=== PATIENT | male | born 1960 | race Caucasian/White ===

== ENCOUNTER → 2019-06-21 08:23 | Outpatient (BNVA) | payer MEDICARE, SELFPAY | PROVIDERS: Family Provider Nurse Practitioner; PCP Nurse Practitioner; Visit Provider Nurse Practitioner Psychiatric/Mental Health | DX: F43.12 Post-traumatic stress disorder, chronic (principal); F41.9 Anxiety disorder, unspecified; G89.29 Other chronic pain | CPT/HCPCS: 99214 ==

== ENCOUNTER → 2019-09-15 07:33 | Outpatient (BNVA) | payer MEDICARE, SELFPAY | PROVIDERS: Family Provider Nurse Practitioner; PCP Nurse Practitioner; Visit Provider Nurse Practitioner Psychiatric/Mental Health | DX: F43.12 Post-traumatic stress disorder, chronic (principal); F41.9 Anxiety disorder, unspecified; G89.29 Other chronic pain | CPT/HCPCS: 99212 ==

== ENCOUNTER 2019-12-08 14:49 | Outpatient (CLI) | payer OTHER, SELFPAY ==
--- NOTE | 2019-12-08 15:11 | MR_ITS ---
WS: [id number] MRI RIGHT SHOULDER AND PROXIMAL HUMERUS NONCONTRAST TECHNIQUE: Sagittal T2, coronal T1, T2 and proton density imaging. Axial gradient PDE imaging. CLINICAL INFORMATION: RIGHT ARM HEMATOMA/PAIN COMPARISON: 2016 FINDINGS: Postoperative changes rotator cuff repair is new from previous. Moderate degenerative arthritis at the AC joint with mild downsloping acromion. T2 signal abnormality involving the distal supraspinatus consistent with tendinopathy. Small recurrent intrasubstance and undersurface tear involving the distal supraspinatus. No tendon retraction. Chronic thinning of the s upraspinatus distally. Infraspinatus is intact with a tiny amount of tendinopathy distally. Normal teres minor. Tendinopathy in the subscapularis tendon distally. Mild chronic thinning of the subscapularis tendon. Fluid in th e subcoracoid bursa. Tiny atrophic biceps tendon only visualized distally within the bicipital groove. Proximal biceps ten don is not visualized. Intra-articular biceps tendon is not visualized and likely chronically torn. D egenerative fraying of the glenoid labrum. MR/MR humerus RT wo con* [id number] IMPRESSION: 1. Interval postoperative changes rotator cuff repair. 2. Small undersurface and intrasubstance tear involving the supraspinatus dist ally with tendinopathy. No recurrent full-thickness tear. Mild tendinopathy inv olving the infraspinatus. 3. Normal teres minor and subscapularis. Mild tendinopathy and atrophy involvi ng the subscapularis tendon progressed from previous. 4. Intra-articular biceps tendon is not visualized. Empty bicipital groove pro ximally consistent with chronic tear. Tiny atrophic biceps tendon distally. Thi s appears new from previous. 5. Mild degenerative fraying of the glenoid labrum.
== END 2019-12-08 14:50 | disposition home or self-care (01) ==
LOC: RADSHAW 14:56
PROVIDERS: PCP Nurse Practitioner; Visit Provider Nurse Practitioner
DX: M19.011 Primary osteoarthritis, right shoulder (principal); S40.021A Contusion of right upper arm, initial encounter; M75.101 Unspecified rotator cuff tear or rupture of right shoulder, not specified as traumatic; X58.XXXA Exposure to other specified factors, initial encounter
CPT/HCPCS: 73218

== ENCOUNTER → 2019-12-13 07:58 | Outpatient (BNVA) | payer OTHER, SELFPAY | PROVIDERS: PCP Nurse Practitioner; Visit Provider Nurse Practitioner Psychiatric/Mental Health | DX: F43.12 Post-traumatic stress disorder, chronic (principal); F41.9 Anxiety disorder, unspecified; G89.29 Other chronic pain | CPT/HCPCS: 99213 ==

== ENCOUNTER → 2020-01-05 15:21 | Outpatient (BNVA) | payer OTHER, SELFPAY | PROVIDERS: PCP Nurse Practitioner; Referring Provider Nurse Practitioner; Visit Provider Specialist | DX: M25.511 Pain in right shoulder (principal) | CPT/HCPCS: 73030 ==

== ENCOUNTER → 2020-03-06 07:53 | Outpatient (BNVA) | payer MEDICARE, SELFPAY | PROVIDERS: PCP Nurse Practitioner; Visit Provider Nurse Practitioner Psychiatric/Mental Health | DX: F43.12 Post-traumatic stress disorder, chronic (principal); F41.9 Anxiety disorder, unspecified; G89.29 Other chronic pain; F32.0 Major depressive disorder, single episode, mild | CPT/HCPCS: 99212 ==

== ENCOUNTER → 2020-04-30 08:36 | Outpatient (BNVA) | payer OTHER, SELFPAY | PROVIDERS: PCP Nurse Practitioner; Referring Provider Nurse Practitioner; Visit Provider Specialist | DX: G89.29 Other chronic pain (principal); M54.32 Sciatica, left side; M53.3 Sacrococcygeal disorders, not elsewhere classified | CPT/HCPCS: 73502 ==

== ENCOUNTER → 2020-05-29 07:38 | Outpatient (BNVA) | payer OTHER, SELFPAY | PROVIDERS: PCP Nurse Practitioner; Visit Provider Nurse Practitioner Psychiatric/Mental Health | DX: F43.12 Post-traumatic stress disorder, chronic (principal); F41.9 Anxiety disorder, unspecified; G89.29 Other chronic pain; F32.0 Major depressive disorder, single episode, mild | CPT/HCPCS: 99212 ==

== ENCOUNTER → 2020-08-21 07:39 | Outpatient (BNVA) | payer MEDICARE, SELFPAY | PROVIDERS: PCP Nurse Practitioner; Visit Provider Nurse Practitioner Psychiatric/Mental Health | DX: F43.12 Post-traumatic stress disorder, chronic (principal); F41.9 Anxiety disorder, unspecified; G89.29 Other chronic pain; F32.0 Major depressive disorder, single episode, mild | CPT/HCPCS: 99213 ==

== ENCOUNTER 2020-08-31 13:22 | Emergency (ER) | payer MEDICARE, SELFPAY ==
[2020-08-31] VITALS (7 sets, daily range): BP systolic 122–151; BP diastolic 71–98; PULSE 59–73; RESP 14–20; TEMP 36.8; O2SAT 94–99; BMI 40.7
--- NOTE | 2020-08-31 16:48 | XRR_ITS ---
PROCEDURE INFORMATION: Exam: XR Chest Exam date and time: 08/31/2020 4:58 PM Age: 60 years old Clinical indication: Type not specified; Prior surgery; Surgery date: 6+ months; Surgery type: Stents x 3; Patient HX: C/O chest pain starting 08/31. HX of [place]; Additional info: Cp TECHNIQUE: Imaging protocol: XR of the chest Views: 1 view. COMPARISON: CR Chest 1 [place] [id number] 01/17/2019 9:30 PM FINDINGS: Lungs: Interstitial prominence and chronic granulomatous disease. No acute airspace disease. Pleural spaces: No pleural effusion. Heart/Mediastinum: Epicardial fat, without cardiomegaly. Bones/joints: Degenerative change. XR/XR chest 1V portable [id number] IMPRESSION: No acute airspace or pleural disease.
--- NOTE | 2020-08-31 16:48 | ECG_ITS ---
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 Measurements Intervals [place] Rate: 55 P: 44 [place]: 151 QRS: 27 QRSD: 109 T: 22 QT: 407 QTc: 390 Interpretive Statements SINUS BRADYCARDIA WITH OCCASIONAL VENTRICULAR PREMATURE COMPLEXES PROBABLE LATERAL MYOCARDIAL INFARCTION , PROBABLY OLD [35 ms Q WAVE IN I/aVL/V5/V6] INFERIOR MYOCARDIAL INFARCTION , PROBABLY OLD [40+ ms Q WAVE AND/OR ST/T ABNORMALITY IN II/aVF] Compared to ECG 01/18/2019 01:21:26 Ventricular premature complex(es) now present Myocardial infarct finding now present Sinus rhythm no longer present Electronically Signed On 08-31-2020 23:16:50 CDT by Cosmo Billy M.D. [id number]
[2020-08-31 17:43] LABS: Basophils # 0.1 10^3/uL (0.0-0.1); Basophils % 0.6 %; Eosinophils # 0.3 10^3/uL (0.0-0.8); Eosinophils % 3.7 %; Hematocrit 42.7 % (42.0-52.0); Hemoglobin 13.7 g/dL (11.7-16.6); Lymphocytes # 2.2 10^3/uL (0.8-4.8); Lymphocytes % 26.4 %; Mean Corpuscular HGB Conc 32.1 g/dL (30.0-36.0); Mean Corpuscular Hemoglobin 29.3 pg (28.0-34.0); Mean Corpuscular Volume 91.2 fL (80-94); Mean Platelet Volume 10.5 fL (7.4-10.4); Monocytes # 0.7 10^3/uL (0.2-0.9); Monocytes % 7.9 %; Neutrophils # 5.06 10^3/uL (1.8-7.7); Neutrophils % 61.2 %; Nucleated Red Blood Cells % 0 %; Platelet Count 231 10^3/cmm (130-400); Red Blood Count 4.68 10^6/uL (4.1-5.3); Red Cell Distribution Width 13.1 % (12.1-15.1); White Blood Count 8.3 10^3/uL (4.0-10.0)
[2020-08-31] MEDS: nitroglycerin 1 gm/inch oint Pkt 1 INCH TOPICAL (18:04)
[2020-08-31] MEDS: aspirin 81 mg Chew Tablet 324 MG PO (18:04)
[2020-08-31 18:17] LABS: Troponin(5th) Baseline 8 ng/L (0-15)
[2020-08-31 18:26] LABS: Alanine Aminotransferase 16 U/L (0-41); Albumin Level 4.4 g/dL (3.5-5.2); Alkaline Phosphatase 91 IU/L (40-130); Anion Gap 15.1 (5-19); Aspartate Amino Transferase 16 U/L (0-40); Blood Urea Nitrogen 12 mg/dL (6-20); Carbon Dioxide 27 mmol/L (22-29); Chloride 101 mmol/L (98-107); Globulin 3.3 g/dL (1.3-4.6); Glomerular Filtration Rate 115.4 mL/min (90-130); Glucose 88 mg/dL (65-115); NT Pro B Type Natriuretic Pept 147 pg/mL (0-125); Osmolality Calculated 287 mOsm/kg (285-295); Potassium 4.1 mmol/L (3.5-5.1); Sodium 139 mmol/L (136-145); Total Bilirubin 0.3 mg/dL (0.15-1.2); Total Protein 7.7 g/dL (6.6-8.7)
--- NOTE | 2020-08-31 19:05 | PC.NURSE ---
REPORT RECEIVED FROM SAMANTA BHAKTA AND CARE TRANSFERRED TO SAMANTA RESTREPO
--- NOTE | 2020-08-31 21:21 | ED_ITS ---
HPI - Chest Pain General: Chief Complaint: Chest Pain Stated Complaint: CHEST PAINS Time Seen by Provider: 08/31/20 16:42 Source: patient Mode of arrival: ambulatory Limitations: no limitations History of Present Illness: HPI narrative: This pleasant 60-year-old male with a prior history of coronary artery disease, prior WI, with stents presents to the emergency department with chest pain that started about an hour prior to arrival. He had gone out and he did not have his nitro tablets with him so he was not able to take him. He has been having intermittent pain for about 3 days but today when the pain did not resolve he decided to come to the emergency department to be evaluated. MD complaint: chest pain Pertinent past history: coronary artery disease and prior WI Onset (ago): hour(s) (1) Timing of current episode: episodic Prior episodes: Yes Onset: during rest Pain location: left chest Pain radiation: left shoulder Severity: moderate Relieving factors: nothing Exacerbating factors: nothing Associated symptoms: Deny abdominal pain, diaphoresis, dyspnea, fever(s), leg edema, nausea, palpitations, sense of impending doom, syncope or vomiting Treatment prior to arrival: none Review of Systems General: Reports: 10 or more systems reviewed and unremarkable except in HPI and below Const: Denies: fever(s) or diaphoresis Eyes: Denies: change in vision or blurry vision ENMT: Denies: throat pain, enlarged tonsils, odynophagia, hoarseness, mouth pain or swelling of lips/tongue Card: Denies: palpitations or syncope Resp: Denies: dyspnea GI: Denies: abdominal pain, nausea or vomiting : Denies: flank pain, dysuria, urinary frequency, urinary urgency or urinary hesitancy Musc: Denies: neck pain, back pain or extremity swelling Skin/Breast: Denies: rash, pruritus or erythema Neuro: Denies: headache(s), numbness in extremities or weakness in extremities Endo: Denies: polyuria, polydipsia or tired all the time [facility] PFSH: Medical History (Reviewed 08/31/20 @ 22:21 by Virginie Cao [place] [facility] [place] Depressive disorder Essential (primary) hypertension Hyperlipemia Mild depression PTSD (post-traumatic stress disorder) Surgical History (Reviewed 08/31/20 @ 22:21 by Virginie Cao MD, [facility] [place] History of back surgery History of carpal tunnel release of both wrists Hx of rotator cuff surgery Family History (Reviewed 08/31/20 @ 22:21 by Virginie Cao MD, [facility] [place] Other CAD (coronary artery disease) Social History (Reviewed 08/31/20 @ 22:21 by Virginie Cao MD, [facility] [place] Smoking and tobacco status: never smoked Alcohol intake: never Physical Exam Const: COMMON NORMALS: no acute distress, average body habitus, patient oriented x3, no limitations, healthy appearing, alert and well nourished HENMT: COMMON NORMALS: normocephalic, atraumatic and moist oral mucous membranes HEAD & SCALP: normocephalic and atraumatic Neck/C-Spine: COMMON NORMALS: no meningeal signs and no JVD Chest: COMMONS NORMALS: normal inspection of the chest and normal palpation of entire chest wall Resp: COMMON NORMALS: normal respiratory effort, No retractions, No use of accessory muscles, clear to auscultation bilaterally and percussion normal AUSCULTATION: clear to auscultation bilaterally PERCUSSION: percussion normal Cardio: COMMON NORMALS: no JVD, regular rate, regular rhythm, S1 normal heart sound present, S2 normal heart sound present, No gallops present (Cardio), No clicks present (Cardio), No murmurs present (Cardio), No rub (Cardio) and Peripheral pulses 2+ throughout RATE: regular rate RHYTHM: regular rhythm HEART SOUNDS: S1 normal heart sound present and S2 normal heart sound present PERIPHERAL PULSES: Peripheral pulses 2+ throughout GI: COMMON NORMALS: Normal to inspection, nondistended, normoactive bowel sounds present, Soft to palpation, non-tender, No hepatosplenomegaly present, no masses and no bruits PALPATION: Yes Soft to palpation and Yes No hepatosplenomegaly present Extremity: COMMON NORMALS: normal to inspection, full ROM, capillary refill normal, no calf tenderness and no pedal edema Neuro: COMMON NORMALS: patient oriented x3 SENSORIUM/ORIENTATION: Yes alert MENINGEAL SIGNS: Yes no meningeal signs Skin: COMMON NORMALS: no rashes or lesions noted, no wounds, turgor normal, no jaundice, no petechiae and no mottling GENERAL SKIN EXAM: no rashes or lesions noted and turgor normal Course Reevaluation(s): Reevaluation #1: Discussed his lab and imaging findings with him. Negative high-sensitivity troponin x2. Other tests and imaging unremarkable. We will discharge him home with no new orders. He voiced understanding and is in agreement with the plan. Time: 21:21 Vital Signs: Vital signs: Vital Signs Temperature 98.2 F 08/31/20 14:15 Pulse Rate 68 08/31/20 21:31 Respiratory Rate 17 08/31/20 21:31 Blood Pressure 135/98 08/31/20 21:31 Pulse Oximetry 97 08/31/20 21:31 MDM - Chest Pain MDM Narrative: Medical decision making narrative: 60-year-old male with a prior cardiac history who presents to the emergency department with chest pain. Evaluation in the ED was unremarkable for acute findings or his cardiac cause for his pain. He is discharged home with no new orders. Medical Records: Attestation: I reviewed the patient's medical records. Lab Data: Attestation: I reviewed the patient's lab results. Labs: Lab Results 08/31/20 08/31/20 08/31/20 Range/Units 17:34 17:34 17:34 WBC 8.3 (4.0-10.0) 10^3/ uL RBC 4.68 (4.1-5.3) 10^6/u L Hgb 13.7 (11.7-16.6) g/dL Hct 42.7 (42.0-52.0) % MCV 91.2 (80-94) fL MCH 29.3 (28.0-34.0) pg MCHC 32.1 (30.0-36.0) g/dL RDW 13.1 (12.1-15.1) % Plt Count 231 (130-400) 10^3/c mm MPV 10.5 H (7.4-10.4) fL Neut % (Auto) 61.2 % Lymph % (Auto) 26.4 % [place] % (Auto) 7.9 % Eos % (Auto) 3.7 % Baso % (Auto) 0.6 % Neut # (Auto) 5.06 (1.8-7.7) 10^3/u L Lymph # (Auto) 2.2 (0.8-4.8) 10^3/u L [place] # (Auto) 0.7 (0.2-0.9) 10^3/u L Eos # (Auto) 0.3 (0.0-0.8) 10^3/u L Baso # (Auto) 0.1 (0.0-0.1) 10^3/u L Nucleated RBC % (a uto) 0 % Nucleated RBCs # 0.0 /100WBC Sodium 139 (136-145) mmol/L Potassium 4.1 (3.5-5.1) mmol/L Chloride 101 (98-107) mmol/L Carbon Dioxide 27 (22-29) mmol/L Anion Gap 15.1 (5-19) BUN 12 (6-20) mg/dL Creatinine 0.7 (0.7-1.2) mg/dL GFR Calculation 115.4 (90-130) mL/min Glucose 88 (65-115) mg/dL Calculated Osmolal ity 287 (285-295) mOsm/k g Calcium 9.0 (8.5-10.5) mg/dL Total Bilirubin 0.3 (0.15-1.2) mg/dL AST 16 (0-40) U/L ALT 16 (0-41) U/L Alkaline Phosphata se 91 (40-130) IU/L Troponin T Baselin e 8 (0-15) ng/L Troponin T 120 [address] [place] (0-15) ng/L Delta Troponin T (0-10) ABS# NT-Pro-B Natriuret Pep 147 H (0-125) pg/mL Total Protein 7.7 (6.6-8.7) g/dL Albumin 4.4 (3.5-5.2) g/dL Globulin 3.3 (1.3-4.6) g/dL 08/31/20 Range/Units 19:33 WBC (4.0-10.0) 10^3/ uL RBC (4.1-5.3) 10^6/u L Hgb (11.7-16.6) g/dL Hct (42.0-52.0) % MCV (80-94) fL MCH (28.0-34.0) pg MCHC (30.0-36.0) g/dL RDW (12.1-15.1) % Plt Count (130-400) 10^3/c mm MPV (7.4-10.4) fL Neut % (Auto) % Lymph % (Auto) % [place] % (Auto) % Eos % (Auto) % Baso % (Auto) % Neut # (Auto) (1.8-7.7) 10^3/u L Lymph # (Auto) (0.8-4.8) 10^3/u L [place] # (Auto) (0.2-0.9) 10^3/u L Eos # (Auto) (0.0-0.8) 10^3/u L Baso # (Auto) (0.0-0.1) 10^3/u L Nucleated RBC % (a uto) % Nucleated RBCs # /100WBC Sodium (136-145) mmol/L Potassium (3.5-5.1) mmol/L Chloride (98-107) mmol/L Carbon Dioxide (22-29) mmol/L Anion Gap (5-19) BUN (6-20) mg/dL Creatinine (0.7-1.2) mg/dL GFR Calculation (90-130) mL/min Glucose (65-115) mg/dL Calculated Osmolal ity (285-295) mOsm/k g Calcium (8.5-10.5) mg/dL Total Bilirubin (0.15-1.2) mg/dL AST (0-40) U/L ALT (0-41) U/L Alkaline Phosphata se (40-130) IU/L Troponin T Baselin e (0-15) ng/L Troponin T 120 [address] [place] 9.90 (0-15) ng/L Delta Troponin T 1.90 (0-10) ABS# NT-Pro-B Natriuret Pep (0-125) pg/mL Total Protein (6.6-8.7) g/dL Albumin (3.5-5.2) g/dL Globulin (1.3-4.6) g/dL Imaging Data^: CXR: Attestation: I personally reviewed and interpreted this imaging study as follows: My impression: no acute findings EKG Data^: EKG 1: Attestation: I personally reviewed and interpreted this EKG as follows: EKG interpretation date: 08/31/20 EKG interpretation time: 19:01 Prior EKG tracings: not available for review Ischemic changes: q waves (leads II, III, aVF) Interpretation: Sinus bradycardia with occasional PVCs. Heart rate 55 bpm. Q waves in leads II, III, aVF. No ST changes Discharge Plan Discharge Patient Disposition: Home Clinical Impression: Chest pain, non-cardiac Condition: Stable Prescriptions: Continued atorvastatin 20 mg tablet 20 mg PO DAILY@1900 RF: 0 clopidogrel 75 mg tablet 75 mg PO DAILY@0600 RF: 0 cyclobenzaprine 10 mg tablet 10 mg PO TID PRN (Reason: Muscle Pain) RF: 0 metoprolol tartrate 100 mg tablet 50 mg PO BID@ RF: 0 omeprazole magnesium 20 mg tablet,delayed release (DR/EC) 20 mg PO DAILY@06 RF: 0 diclofenac sodium 50 mg tablet,delayed release (DR/EC) 50 mg PO BID@ RF: 0 Nitrostat 0.4 mg Tablet, Sublingual 0.4 mg SUBLINGUAL Q5M PRN (Reason: Chest Pain) RF: 0 Lyrica 150 mg Capsule 150 mg PO BID@ RF: 0 Fish Oil 1,200 (144-216) mg Capsule 1 cap PO BID@ RF: 0 prazosin 1 mg capsule 1 mg PO BEDTIME@1900 RF: 0 hydroxyzine pamoate 50 mg capsule 50 mg PO BID PRN (Reason: anxiety) RF: 0 Lexapro 20 mg tablet 20 mg PO DAILY@06 RF: 0 Discharge Orders: Discharge ED (Routine); Ordered 08/31/20 Ordered By: Virginie Cao Referrals: Linda Nielson FNP [Primary Care Provider] - 1-3 days Discharge Diet: Usual diet Discharge Activity: Increase activity as tolerated Patient Instructions: Noncardiac Chest Pain (ED) Activity Restrictions/Additional Instructions: Return for any new or worsening symptoms. Follow-up with your primary care provider within 3 days. Continue home medications as prescribed. Coding Level of Care Code ED Business Operations Manager for Libia Saez
== END 2020-08-31 20:34 | disposition home or self-care (01) ==
PROVIDERS: Emergency Provider Family Medicine; PCP Nurse Practitioner
DX: R07.89 Other chest pain (principal); Z79.02 Long term (current) use of antithrombotics/antiplatelets; I10 Essential (primary) hypertension; E78.5 Hyperlipidemia, unspecified
CPT/HCPCS: 71045; 80053; 83880; 84484; 85025; 93005; 99284

== ENCOUNTER 2020-10-22 08:13 | Outpatient (CLI) | payer OTHER, SELFPAY ==
--- NOTE | 2020-10-22 08:16 | MR_ITS ---
WS: [id number] MRI LUMBAR SPINE NONCONTRAST HISTORY: LOW BACK PAIN W/SCIATICA COMPARISON: 11/15/2008 TECHNIQUE: Sagittal and axial multisequence imaging is submitted. Prior laminectomy defects at L3-4 and L4-5. Mild thoracolumbar scoliosis. Mild RIGHT curvature of the lumbar spine. Significant progression of de generative changes at the L3-4 disc level greatest towards the LEFT. There is very minimal increased signal on the T2 and FLAIR sequences in the far LEFT vertebral bodies. No fluid in the disc. The remaining disc spaces are minimally narrowed with desiccation. Conus terminates normally at L1-2 disc level. L1-L2: Normal. L2-L3: Minimal facet joint arthritis. No stenosis. L3-L4: Diffuse annular disc bulging with osteophytosis. Moderate bilateral facet joint arthritis. The re is increased soft tissue completely effacing fat in the LEFT foramen and slightly in the RIGHT for amen. There is a large posterior laminectomy defect. Mild central stenosis and RIGHT foraminal stenos is. L4-L5: Diffuse annular disc bulging and osteophytic ridging. Moderate ligamentum flavum hypertrophy a nd facet arthritis. Large posterior laminectomy defects. Moderate RIGHT and mild LEFT foraminal steno sis due to disc and osteophyte disease. L5-S1: Mild annular disc bulge. Disc abuts but does not displace the L5 nerve root on the RIGHT. Very mild foraminal narrowing. MR/MR lumbar spine wo con* [id number] IMPRESSION: 1. Status post prior large laminectomy defects at L3-4 and L4-5. 2. Significant change in the L3-4 due to disc and adjacent vertebral body endp lates since 2008. Mild increased T2 signal in the LEFT L3 and L4 endplates is p robably reactive. Less likely due to osteomyelitis as there is only very slight marrow edema. 3. Significant disc desiccation with osteophyte development and disc destructi ve changes of the LEFT L3 and L4 endplates. Severe LEFT foraminal stenosis due to combination of disc and osteophyte and facet disease. 4. Mild central and RIGHT foraminal stenosis at L3-4. 5. Moderate RIGHT and mild LEFT foraminal stenosis at L4-5 due to disc and ost eophyte disease.
== END 2020-10-22 08:14 | disposition home or self-care (01) ==
LOC: RADSHAW 08:14
PROVIDERS: PCP Nurse Practitioner; Visit Provider Nurse Practitioner
DX: M54.40 Lumbago with sciatica, unspecified side (principal); M96.1 Postlaminectomy syndrome, not elsewhere classified; M25.78 Osteophyte, vertebrae; M48.061 Spinal stenosis, lumbar region without neurogenic claudication
CPT/HCPCS: 72148

== ENCOUNTER → 2020-11-13 07:43 | Outpatient (BNVA) | payer MEDICARE, SELFPAY | PROVIDERS: PCP Nurse Practitioner; Visit Provider Nurse Practitioner Psychiatric/Mental Health | DX: F43.12 Post-traumatic stress disorder, chronic (principal); F41.9 Anxiety disorder, unspecified; G89.29 Other chronic pain; F32.0 Major depressive disorder, single episode, mild | CPT/HCPCS: 99213 ==

== ENCOUNTER → 2021-02-05 07:48 | Outpatient (BNVA) | payer MEDICARE, SELFPAY | PROVIDERS: PCP Nurse Practitioner; Visit Provider Nurse Practitioner Psychiatric/Mental Health | DX: F43.12 Post-traumatic stress disorder, chronic (principal); F41.9 Anxiety disorder, unspecified; G89.29 Other chronic pain; F32.0 Major depressive disorder, single episode, mild | CPT/HCPCS: 99213 ==

== ENCOUNTER 2021-03-22 08:44 | Outpatient (CLI) | payer OTHER, SELFPAY ==
--- NOTE | 2021-03-22 09:11 | ECG_ITS ---
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 Interpretive Statements NAME OF STUDY: LEXISCAN SESTAMIBI STRESS TEST INDICATION: Pre op Clearance, Coronary Artery Disease PROCEDURE: At the baseline, the blood pressure was 142/80 mmHg, oxygen saturation 97% with a heart rate of 57 bpm. The electrocardiogram showed sinus bradycardia with artifact. Normal axis. Nonspecific ST changes. Sinus rhythm with artifact.. The Lexiscan was infused over a period of 20 seconds. A total of 0.4 milligrams of Lexiscan was infused. The stress phase was continued for a total of 5 minutes. Heart rate at the end of the stress phase was 92 bpm, oxygen saturation 92% with a blood pressure of 153/87 mmHg. The EKG at the peak infusion revealed no significant ST-T wave changes. Significant artifact at peak exercise however early recovery with no significant ST-T wave changes. Sestamibi was injected 20 seconds after the Lexiscan infusion. Blood pressure at the end of the recovery phase was with a heart rate of per minute. CONCLUSION: 1. No significant EKG changes with the LexiScan infusion. 2. No LexiScan induced chest pain or cardiac arrhythmia. 3. Normal blood pressure and heart rate response. 4. Sestamibi/sestamibi perfusion scan pending; see separate report. Electronically Signed On 03-25-2021 11:58:35 CDT by Harriett Mata M.D. [id number]
--- NOTE | 2021-03-22 09:11 | NMCV_ITS ---
NM ary perf SPECT r/s* [id number] Myke Liu Age: 61 Gender: M : 1960 Exam Date: 03/22/2021 09:11 Ordering Phys: Harriett Mata MD ([email or web address]) Technologist: JANNET Brown Exam Location: [facility] Indications: HEART DISEASE STRESS TEST Please see separate stress test report in [facility] for full findings IMAGE PROTOCOL Rest/Stress 1 Lexiscan Day Radiopharmaceutical Dose (mCi) Administration Site Administered by Rest: Tc-99m 10.6 IV JANNET Brown Sestamibi Stress:Tc-99m 32.8 IV JANNET Cardenas Sestamibi Rest: 22-Mar-2021 60 Discovery 630 Stress: 22-Mar-2021 30 Discovery 630 0.4mg Lexiscan. Images obtained in supine and prone position. SPECT RESULTS Technical Quality: Excellent Raw Data Analysis: Normal Image Corrections: No attenuation or motion correction applied Summed Stress Score: 15 Summed Rest Score: 16 Summed Difference Score: 2 PERFUSION FINDINGS Large sized perfusion abnormality of moderate to severe severity in basal to apical inferior, basal to mid infero-lateral and mid to apical septal bazan with subtle reversibility in mid inferior and apical septal bazan on stress images. FUNCTIONAL RESULTS (calculated via Gated SPECT) Stress Image LV EF (%): 51 Stress EDV (mL):162 TID: 0.98 Stress ESV (mL):79 FUNCTIONAL FINDINGS: The left ventricle is normal in size. Transient Ischemia Dilatation of 0.98. The left ventricular ejection fraction is mildly reduced with a value of 51%. There is hypokinesis of inferior and infero-lateral bazan. Increased end diastolic and end systolic volumes. IMPRESSIONS 1. Large sized perfusion abnormality of moderate to severe severity in basal to apical inferior, basal to mid infero-lateral and mid to apical septal bazan with subtle reversibility in mid inferior and apical septal bazan on stress images. 2. This likely represents old myocardial infarction in RCA/LCx artery territory with mild manas-infarct ischemia. 3. The left ventricular ejection fraction is mildly reduced with a value of 51%. 4. There is hypokinesis of inferior and infero-lateral bazan. 5. No prior similar studies to compare. Harriett Mata MD (Electronically Signed) Final Date: 24 March 2021 21:12 S
[2021-03-22 09:12] VITALS: BMI 40.7
[2021-03-22] MEDS: regadenoson 0.4 Mg/5 ml Syringe IVP (10:50)
[2021-03-22] MEDS: ondansetron 2 mg/ML SDV 2 mL 4 MG IVP (11:00)
[2021-03-22 11:09] VITALS: BP 130/92; PULSE 66
== END 2021-03-22 08:45 | disposition home or self-care (01) ==
LOC: CDL 08:46
PROVIDERS: PCP Nurse Practitioner; Visit Provider Internal Medicine Cardiovascular Disease
DX: I25.10 Atherosclerotic heart disease of native coronary artery without angina pectoris (principal); I25.9 Chronic ischemic heart disease, unspecified
CPT/HCPCS: 78452; 93017; A9500; J2405; J2785

== ENCOUNTER 2021-05-27 15:09 | Outpatient (CLI) | payer MEDICARE, OTHER, SELFPAY ==
[2021-05-27 16:07] LABS: Hematocrit 36.2 % (42.0-52.0); Hemoglobin 11.2 g/dL (11.7-16.6); Mean Corpuscular HGB Conc 30.9 g/dL (30.0-36.0); Mean Corpuscular Hemoglobin 27.5 pg (28.0-34.0); Mean Corpuscular Volume 88.9 fl (80-94); Mean Platelet Volume 10.3 fL (7.4-10.4); Platelet Count 350 10^3/cmm (130-400); Red Blood Count 4.07 10^6/uL (4.1-5.3); Red Cell Distribution Width 14.1 % (12.1-15.1); White Blood Count 6.5 10^3/uL (4.0-10.0)
[2021-05-27 16:31] LABS: Alanine Aminotransferase < 5 U/L (0-41); Alkaline Phosphatase 70 IU/L (40-130); Aspartate Amino Transferase 13 U/L (0-40); Blood Urea Nitrogen 13 mg/dL (8-23); C Reactive Protein 4.3 mg/L (0.0-4.9); Calcium 8.9 mg/dL (8.5-10.5); Carbon Dioxide 22 mmol/L (22-29); Chloride 99 mmol/L (98-107); Globulin 3.1 g/dL (1.3-4.6); Glucose 138 mg/dL (65-115); Osmolality Calculated 286 mOsm/kg (285-295); Sodium 137 mmol/L (136-145); Total Bilirubin 0.2 mg/dL (0.15-1.2); Total Protein 7.1 g/dL (6.6-8.7)
[2021-05-27 16:37] LABS: Anion Gap 19.7 (5-19)
[2021-05-27 16:38] LABS: Potassium 3.7 mmol/L (3.5-5.1)
[2021-05-27 18:12] LABS: Absolute Eosinophils 0.7 10^3/cmm (0.0-0.7); Absolute Neutrophil 2.9 10^3/cmm (1.4-6.5); Absolute Segmented Neutrophil 2.9 10/cmm (1.6-7.1); Eosinophils 11 %; Giant Platelets Trace; Lymphocytes 37 %; Lymphocytes Absolute 2.4 10^3/cmm (1.2-3.4); Monocytes Absolute 0.5 10^3/cmm (0.1-0.6); Platelet Estimate Normal (Normal); Segmented Neutrophils 44 %; Smudge Cells Trace; Total Cells Counted 100 (0-100)
== END 2021-05-27 15:10 | disposition home or self-care (01) ==
PROVIDERS: PCP Nurse Practitioner; Visit Provider Internal Medicine Infectious Disease
DX: A49.02 Methicillin resistant Staphylococcus aureus infection, unspecified site (principal)
CPT/HCPCS: 80053; 85007; 85027; 86140

== ENCOUNTER 2021-06-11 14:52 | Outpatient (CLI) | payer OTHER, SELFPAY ==
[2021-06-11 15:25] LABS: Basophils % 0.5 %; Eosinophils # 0.3 10^3/uL (0.0-0.8); Eosinophils % 4.1 %; Hematocrit 39.4 % (42.0-52.0); Hemoglobin 12.3 g/dL (11.7-16.6); Lymphocytes # 2.2 10^3/uL (0.8-4.8); Mean Corpuscular HGB Conc 31.2 g/dL (30.0-36.0); Mean Corpuscular Volume 89.7 fl (80-94); Mean Platelet Volume 10.7 fL (7.4-10.4); Monocytes # 0.9 10^3/uL (0.2-0.9); Monocytes % 11.9 %; Neutrophils # 4.07 10^3/uL (1.8-7.7); Neutrophils % 54.4 %; Nucleated Red Blood Cells % 0 %; Platelet Count 284 10^3/cmm (130-400); Red Blood Count 4.39 10^6/uL (4.1-5.3); Red Cell Distribution Width 13.9 % (12.1-15.1); White Blood Count 7.5 10^3/uL (4.0-10.0)
[2021-06-11 16:03] LABS: Alanine Aminotransferase 10 U/L (0-41); Alkaline Phosphatase 86 IU/L (40-130); Aspartate Amino Transferase 12 U/L (0-40); Blood Urea Nitrogen 11 mg/dL (8-23); Calcium 8.4 mg/dL (8.5-10.5); Carbon Dioxide 26 mmol/L (22-29); Chloride 102 mmol/L (98-107); Globulin 3.1 g/dL (1.3-4.6); Glomerular Filtration Rate 137.4 mL/min (90-130); Glucose 91 mg/dL (65-115); Osmolality Calculated 291 mOsm/kg (285-295); Sodium 141 mmol/L (136-145); Total Bilirubin 0.2 mg/dL (0.15-1.2); Total Protein 7.1 g/dL (6.6-8.7)
[2021-06-11 16:05] LABS: Anion Gap 17.2 (5-19); Potassium 4.2 mmol/L (3.5-5.1)
== END 2021-06-11 14:53 | disposition home or self-care (01) ==
PROVIDERS: Visit Provider Internal Medicine Infectious Disease
DX: A49.02 Methicillin resistant Staphylococcus aureus infection, unspecified site (principal)
CPT/HCPCS: 80053; 85025

== ENCOUNTER → 2021-07-11 07:13 | Outpatient (BNVA) | payer OTHER, SELFPAY | PROVIDERS: Visit Provider Nurse Practitioner Psychiatric/Mental Health | DX: F41.9 Anxiety disorder, unspecified (principal); F43.12 Post-traumatic stress disorder, chronic; G89.29 Other chronic pain | CPT/HCPCS: 99213 ==

== ENCOUNTER → 2021-10-07 10:07 | Outpatient (BNVA) | payer OTHER, SELFPAY | PROVIDERS: Visit Provider Nurse Practitioner Psychiatric/Mental Health | DX: F41.9 Anxiety disorder, unspecified (principal); F43.12 Post-traumatic stress disorder, chronic; G89.29 Other chronic pain | CPT/HCPCS: 99214 ==

== ENCOUNTER → 2023-03-25 08:51 | Outpatient (BNVA) | payer OTHER, SELFPAY | PROVIDERS: Visit Provider Nurse Practitioner Family | DX: L57.0 Actinic keratosis (principal); Z80.8 Family history of malignant neoplasm of other organs or systems; L28.1 Prurigo nodularis; D22.5 Melanocytic nevi of trunk; L57.8 Other skin changes due to chronic exposure to nonionizing radiation; L81.4 Other melanin hyperpigmentation | CPT/HCPCS: 17000; 99213 ==

== ENCOUNTER 2023-06-23 09:34 | Emergency (ER) | payer OTHER, SELFPAY ==
--- NOTE | 2023-06-23 09:39 | XR_ITS ---
WS: [id number] PORTABLE CHEST HISTORY: cough, dyspnea COMPARISON: 08/31/2020 Lungs are clear and well expanded. No pleural effusion or pneumothorax. Cardiac size: Normal. Mediastinum/Aorta: Normal mediastinum. No osseous abnormality seen. IMPRESSION: Unremarkable portable chest.
[2023-06-23 09:40] VITALS: BP 168/84; PULSE 80; RESP 16; TEMP 37; O2SAT 96; BMI 36.0
--- NOTE | 2023-06-23 09:45 | ED_ITS ---
HPI - URI/Sore Throat General: Chief Complaint: COVID symptoms Stated Complaint: Cough, SOB Time Seen by Provider: 06/23/23 09:39 Source: patient Mode of arrival: ambulatory Limitations: no limitations History of Present Illness: Patient is a nice 63-year-old male who presents to ED today for evaluation of upper respiratory-like symptoms. Patient states last week he began having nasal congestion, runny nose, sore throat, cough, and bodyaches. He states the symptoms lasted for a few days but then he got better . He states over the past 2 to 3 days symptoms have now returned. He has not been running fevers. He denies chest pain or difficulty breathing. He does feel like it is hard to get a full deep breath. Denies sick contacts. MD elicited complaint: cough, sore throat, nasal congestion, sinus pain and other (sob) Onset (ago): day(s) Consistency: constant Severity: moderate Description of mucous: clear Able to tolerate fluids by mouth: Yes Exacerbating factors: nothing Relieving factors: nothing Associated symptoms: Reports congestion, cough, nasal congestion and sinus pain; Deny abdominal pain, chills, chest pain, diarrhea, ear or mastoid pain, fever(s), headache(s), nausea or vomiting Treatments prior to arrival: cold medicine Review of Systems Const: Reports: body aches; Denies: fever(s), chills, fatigue or malaise Eyes: Denies: change in vision, blurry vision, photophobia, floaters or seeing flashes ENMT: Reports: throat pain, odynophagia, nasal discharge, nasal congestion and sinus pain; Denies: ear or mastoid pain Card: Denies: chest pain, palpitations, irregular heart rhythm, lightheadedness, syncope or dyspnea on exertion Resp: Reports: dyspnea, productive cough and chest congestion; Denies: wheezing, pain on inspiration or hemoptysis GI: Denies: abdominal pain, nausea, vomiting, heartburn or diarrhea : Denies: difficulty urinating or dysuria Musc: Denies: neck pain, back pain or joint pain Skin/Breast: Denies: rash Neuro: Denies: headache(s), numbness in extremities, weakness in extremities, sensory changes or dizziness [facility] ED PFSH: Medical History CAD (coronary artery disease) Family history of melanoma Mild depression Essential (primary) hypertension Depressive disorder PTSD (post-traumatic stress disorder) Hyperlipemia Surgical History History of carpal tunnel release of both wrists History of back surgery Hx of rotator cuff surgery Family History Other CAD (coronary artery disease) Social History Smoking and tobacco/nicotine status: former use of tobacco/nicotine Alcohol intake: never Substance/Drug Use: never Physical Exam Const: COMMON NORMALS: no acute distress, patient oriented x3, no limitations, alert and well nourished GENERAL APPEARANCE: cooperative NUTRITIONAL APPEARANCE: overweight ORIENTATION/CONSCIOUSNESS: Yes awake, Yes oriented to person, Yes oriented to place and Yes oriented to time HENMT: COMMON NORMALS: normocephalic, atraumatic, hearing grossly normal bilaterally, external ears normal, EAC's normal, TM's normal bilaterally, Normal external nose present, Normal nasal mucous membranes and turbinates present and oropharynx normal HEAD & SCALP: normal to inspection, normocephalic and atraumatic FACE & SINUS: normal facial exam NOSE: Normal external nose present and Normal nasal mucous membranes and turbinates present EXTERNAL EAR: Yes external ears normal EXTERNAL AUDITORY CANAL: EAC's normal TYMPANIC MEMBRANE: TM's normal bilaterally MOUTH: Normal oral and palatal mucosa present and lip normal THROAT: posterior oropharynx normal and tonsils normal Eye: GENERAL EYE: appearance normal, both eyes and all related structures Neck/C-Spine: COMMON NORMALS: full ROM and no lymphadenopathy GENERAL: Yes normal visual inspection Chest: COMMONS NORMALS: normal inspection of the chest and normal palpation of entire chest wall Resp: COMMON NORMALS: normal respiratory effort AUSCULTATION: wheezes Cardio: COMMON NORMALS: regular rate and regular rhythm RATE: regular rate RHYTHM: regular rhythm Extremity: COMMON NORMALS: no clubbing, cyanosis or edema, no calf tenderness and no pedal edema GENERAL: Yes normal exam except as noted Neuro: COMMON NORMALS: patient oriented x3 SENSORIUM/ORIENTATION: Yes alert, Yes oriented to person, Yes oriented to place and Yes oriented to time Skin: COMMON NORMALS: no rashes or lesions noted GENERAL SKIN EXAM: no rashes or lesions noted Course Vital Signs: Vital signs: Vital Signs Temperature 98.6 F 06/23/23 09:40 Pulse Rate 80 06/23/23 09:40 Respiratory Rate 16 06/23/23 09:40 Blood Pressure 168/84 06/23/23 09:40 Pulse Oximetry 97 06/23/23 10:01 Oxygen Delivery Me thod Room Air 06/23/23 10:01 MDM - URI/Sore Throat Medical Decision Making Patient appears in no acute distress. He arrives with stable vital signs. His CXR is unremarkable. Most likely this is viral upper respiratory infection. Respiratory panel/PCR swabs are critically low in the lab therefore we were not able to obtain any testing. He is outside the window where I feel a rapid antigen would be accurate. Patient will be treated conservatively. He feels like his cough is his most burdensome symptom. He did have some very mild wheezing. He was given an Albuterol inhaler here prior to discharge. Will place him on Tessalon Perles and Prednisone. Return to ED precautions given. Differential Diagnosis Likely upper respiratory infection and viral infection Medical Records I reviewed the patient's medical records. XR interpretation done by ED provider, pending radiology final review Discharge Plan Discharge Patient Disposition: Home Clinical Impression: Viral upper respiratory tract infection with cough Condition: Stable Prescriptions: New prednisone 10 mg tablet 10 mg PO DAILY 10 Days Qty: 20 0RF Rx Instructions: Take 5 tabs on day 1-2, 4 tabs on day 3, 3 tabs on day 4, 2 tabs on day 5, and 1 tab on day 6 benzonatate 100 mg capsule 100 mg PO TID PRN (Reason: cough) Qty: 14 0RF No Action atorvastatin 20 mg tablet 20 mg PO DAILY@1900 clopidogrel 75 mg tablet 75 mg PO DAILY@0600 cyclobenzaprine 10 mg tablet 10 mg PO TID PRN (Reason: Muscle Pain) metoprolol tartrate 100 mg tablet 50 mg PO BID@06,19 omeprazole magnesium 20 mg tablet,delayed release (DR/EC) 20 mg PO DAILY@06 prazosin 2 mg capsule 2 mg PO .qhs Qty: 30 1RF Rx Instructions: Take one capsule daily at bedtime Lexapro 20 mg tablet 20 mg PO .q am Qty: 30 1RF Rx Instructions: take one tablet by mouth every morning buspirone 10 mg tablet 10 mg PO BID Qty: 60 1RF Rx Instructions: Take one tablet morning and early evening mupirocin 2 % ointment 1 applic topical BID Qty: 22 1RF Rx Instructions: Apply to affected area Nitrostat 0.4 mg Tablet, Sublingual 0.4 mg SUBLINGUAL Q5M PRN (Reason: Chest Pain) Lyrica 150 mg Capsule 150 mg PO BID@06,19 Discharge Orders: Discharge ED (Routine); Ordered 06/23/23 Ordered By: Melonie Meyers Referrals: Linda Nielson FNP [Primary Care Provider] - Patient Instructions: Upper Respiratory Infection (DC) Coding Level of Care Code ED Division Toll Wire Chief for Libia Saez
[2023-06-23 10:01] VITALS: O2SAT 97
== END 2023-06-23 10:19 | disposition home or self-care (01) ==
PROVIDERS: Emergency Provider Physician Assistant; PCP Nurse Practitioner
DX: J06.9 Acute upper respiratory infection, unspecified (principal); R05.9 Cough, unspecified; Z79.02 Long term (current) use of antithrombotics/antiplatelets; Z87.891 Personal history of nicotine dependence; I25.10 Atherosclerotic heart disease of native coronary artery without angina pectoris; I10 Essential (primary) hypertension; E78.5 Hyperlipidemia, unspecified
CPT/HCPCS: 71045; 99284; J3535